=== PATIENT | female | born 1935 | race Caucasian/White ===

== ENCOUNTER 2018-10-20 09:45 | Emergency (ER) | payer MEDICARE, BC ==
[~2018-10-20] VITALS: Ht 160 cm; Wt 76.2 kg
[2018-10-20] MEDS ORDERED: ROSU5TAB PO (10:01)
[2018-10-20] MEDS ORDERED: OMEP40CA37 PO (10:01)
[2018-10-20] MEDS ORDERED: LOSA50TA3 PO (10:01)
[2018-10-20] MEDS ORDERED: AMLO5TAB4 PO (10:01)
[2018-10-20] MEDS ORDERED: METF-440 PO (10:01)
[2018-10-20] MEDS ORDERED: POTA8TAB3 PO (10:01)
[2018-10-20] MEDS ORDERED: CHOL200074 PO (10:06)
[2018-10-20] MEDS ORDERED: UBID100C13 PO (10:06)
[2018-10-20] MEDS ORDERED: BETA1TAB18 PO (10:06)
[2018-10-20] MEDS ORDERED: MAGN400C PO (10:06)
[2018-10-20] MEDS ORDERED: BIOT1CAP3 PO (10:06)
[2018-10-20] MEDS ORDERED: OMEG-15 PO (10:06)
[2018-10-20 10:10] LABS: *BILIRUBIN,URIN NEGATIVE (NEGATIVE); *BLOOD, URINE NEGATIVE (NEGATIVE); *CLARITY,URINE CLEAR (CLEAR); *COLOR,URINE YELLOW (YELLOW); *KETONES,URINE NEGATIVE (NEGATIVE); *UROBILINOGEN,URINE 0.2 E.U./dl (NORMAL); LEUKOCYTE ESTERASE ,URINE 1+ (NEGATIVE); NITRITE, URINE NEGATIVE (NEGATIVE); PH,URINE 8.5 (5.0-8.0); UGLUCOSE NEGATIVE (NEGATIVE)
[2018-10-20 10:18] LABS: BACTERIA,URINE NONE SEEN /HPF (NONE SEEN); RBC,URINE 0-3 /HPF (0-3); SQUAMOUS EPITHELIAL CELL,UR FEW /HPF (NONE SEEN); WBC,URINE 0-3 /HPF (0-3)
[2018-10-20 10:19] LABS: MUCUS,URINE FEW /LPF (0-FEW)
[2018-10-20 10:20] LABS: BASOPHILS # (AUTO) 0.1 K/uL (0.0-8.0); BASOPHILS % (AUTO) 0.8 % (0.0-2.0); EOSINOPHILS # (AUTO) 0.2 K/uL (0.0-0.7); EOSINOPHILS % (AUTO) 1.8 % (0.0-7.0); HEMATOCRIT 37.3 % (31.2-41.9); HEMOGLOBIN 12.3 g/dL (10.9-14.3); LYMPHOCYTES # (AUTO) 2.4 K/uL (20.0-40.0); LYMPHOCYTES % (AUTO) 24.9 % (20.5-51.5); MEAN CORPUSCULAR HGB CONC 33 g/dL (32.3-35.6); MEAN CORPUSCULAR VOLUME 84.7 fL (75.5-95.3); MONOCYTES # (AUTO) 0.9 K/uL (2.0-10.0); MONOCYTES % (AUTO) 8.8 % (0.0-11.0); NEUTROPHILS # (AUTO) 6.3 K/uL (1.8-8.9); NEUTROPHILS % (AUTO) 63.7 % (38.5-71.5); PLATELET COUNT (AUTO) 372 K/uL (179-408); WHITE BLOOD COUNT (AUTO) 9.8 K/uL (3.8-11.8)
[2018-10-20 10:30] LABS: CARBON DIOXIDE 26 mmol/L (21-32); CHLORIDE 98 mmol/L (98-107); CREATININE 0.7 mg/dL (0.6-1.3); GLUCOSE 132 mg/dL (74-106); POTASSIUM 3.9 mmol/L (3.5-5.1); UREA NITROGEN, BLOOD 18 mg/dL (7-18)
[2018-10-20 10:33] LABS: ALANINE AMINOTRANSFERASE 25 U/L (14-59); ALKALINE PHOSPHATASE 116 U/L (50-136); ASPARTATE AMINOTRANSFERASE 14 U/L (15-37); BILIRUBIN,DIRECT 0.1 mg/dL (0.0-0.2); BILIRUBIN,TOTAL 0.3 mg/dL (0.2-1.0); LIPASE 59 U/L (73-393); TOTAL PROTEIN, SERUM 8.7 g/dL (6.4-8.2)
--- NOTE | 2018-10-20 10:50 | NUR ---
Patient discharged to home in stable conditon. Written and verbal after care instructions given. Patient verbalizes understanding of instructions.pt walks in steady gait. pt says feels better. pt refused pain med. pt accompanied by
[2018-10-20 10:52] VITALS: BP 145/71
== END 2018-10-20 10:53 | disposition home or self-care (01) ==
LOC: ER 09:45
DX: R10.12 Left upper quadrant pain (principal); E11.9 Type 2 diabetes mellitus without complications; Z88.0 Allergy status to penicillin; Z88.5 Allergy status to narcotic agent; Z79.899 Other long term (current) drug therapy
CPT/HCPCS: 36415; 70030-TC; 71045; 83605; 83690; 85025; 93005; A4663

== ENCOUNTER 2018-11-13 11:04 | Emergency (ER) | payer MEDICARE, BC ==
[~2018-11-13] VITALS: Ht 160 cm; Wt 74.8 kg
[~2018-11-13 11:04] MED LIST: AMLO5TAB4 PO; BETA1TAB18 PO; BIOT1CAP3 PO; CHOL200074 PO; LOSA50TA3 PO; MAGN400C PO; METF-440 PO; OMEG-15 PO; OMEP40CA37 PO; POTA8TAB3 PO; ROSU5TAB PO; UBID100C13 PO
--- NOTE | 2018-11-13 11:04 | NUR ---
Pt ambulatory to room 1B.
--- NOTE | 2018-11-13 11:31 | NUR ---
Code Stroke activated 1125
[2018-11-13 11:34] LABS: BASOPHILS # (AUTO) 0.1 K/uL (0.0-8.0); BASOPHILS % (AUTO) 1.1 % (0.0-2.0); EOSINOPHILS # (AUTO) 0.3 K/uL (0.0-0.7); EOSINOPHILS % (AUTO) 2.7 % (0.0-7.0); HEMATOCRIT 36.7 % (31.2-41.9); HEMOGLOBIN 12.1 g/dL (10.9-14.3); LYMPHOCYTES # (AUTO) 3.1 K/uL (20.0-40.0); MEAN CORPUSCULAR HEMOGLOBIN 27.8 uug (24.7-32.8); MEAN CORPUSCULAR HGB CONC 33 g/dL (32.3-35.6); MEAN CORPUSCULAR VOLUME 84.7 fL (75.5-95.3); MONOCYTES % (AUTO) 10.3 % (0.0-11.0); NEUTROPHILS # (AUTO) 4.9 K/uL (1.8-8.9); NEUTROPHILS % (AUTO) 52.9 % (38.5-71.5); PLATELET COUNT (AUTO) 368 K/uL (179-408); RED BLOOD CELL COUNT(AUTO) 4.33 MIL/uL (3.63-4.92); WHITE BLOOD COUNT (AUTO) 9.3 K/uL (3.8-11.8)
[2018-11-13 11:40] LABS: CARBON DIOXIDE 24 mmol/L (21-32); CHLORIDE 100 mmol/L (98-107); CREATININE 0.7 mg/dL (0.6-1.3); GLUCOSE 113 mg/dL (74-106); POTASSIUM 4.1 mmol/L (3.5-5.1); UREA NITROGEN, BLOOD 17 mg/dL (7-18)
[2018-11-13] MEDS ORDERED: MECLIZINE HCL 25 MG TABLET PO ONE (11:45)
[2018-11-13] MEDS ORDERED: LORAZEPAM 0.5 MG TABLET PO ONE (11:45)
[2018-11-13 11:46] LABS: CHOLESTEROL 145 mg/dL (<200); HDL CHOLESTEROL 55 mg/dL (40-60); TRIGLYCERIDES 102 MG/DL (30-150)
[2018-11-13] MEDS ORDERED: SWABABLE VALVE TRANSFER SET EA MC ONE (11:46)
[2018-11-13] MEDS ORDERED: IOHEXOL 350 100 ML INFUS..BTL ONE (11:46)
[2018-11-13] MEDS ORDERED: IV NORMAL SALINE 250 ML IV ONE (11:46)
[2018-11-13] MEDS ORDERED: ASPIRIN 81 MG TAB.CHEW PO ONE (12:15)
[2018-11-13] MEDS ORDERED: MECLIZINE HCL 25 MG TABLET ONE (12:32)
[2018-11-13] MEDS ORDERED: LORAZEPAM 0.5 MG TABLET ONE (12:33)
[2018-11-13] MEDS ORDERED: ASPIRIN 81 MG TAB.CHEW ONE (12:36)
--- NOTE | 2018-11-13 13:48 | NUR ---
TEXTED DR. MARCUM FOR MRI APPROVAL.
[2018-11-13 15:57] VITALS: BP 140/77
== END 2018-11-13 15:58 | disposition home or self-care (01) ==
LOC: ER 11:04
DX: R42 Dizziness and giddiness (principal); I65.29 Occlusion and stenosis of unspecified carotid artery; I10 Essential (primary) hypertension; E11.9 Type 2 diabetes mellitus without complications; Z88.0 Allergy status to penicillin; Z88.5 Allergy status to narcotic agent; Z79.899 Other long term (current) drug therapy
CPT/HCPCS: 36415; 70450; 70496; 70498; 71045; 80048; 80061; 82962; 84484; 85025; 85730; 93005; 93307; 93880; 99284; Q9967; 70030-TC; A4663; J7050; J8597